=== PATIENT | male | born 1980 | race Caucasian/White ===

== ENCOUNTER 2016-08-02 17:41 | Emergency (ER) | payer OTHER ==
[~2016-08-02 17:41] MED LIST: ALD25 PO; ECO81 PO; LIPI10 PO; TOP50 PO; ZES10 PO
[2016-08-02 20:55] VITALS: BP 123/87
== END 2016-08-02 20:55 | disposition home or self-care (01) ==
LOC: ED 17:41
DX: M54.12 Radiculopathy, cervical region (principal); S09.90XA Unspecified injury of head, initial encounter; R03.0 Elevated blood-pressure reading, without diagnosis of hypertension; W17.89XA Other fall from one level to another, initial encounter; Y93.89 Activity, other specified; Y99.8 Other external cause status; Y92.89 Other specified places as the place of occurrence of the external cause
CPT/HCPCS: J1885

== ENCOUNTER 2016-10-02 16:32 | Emergency (ER) | payer SELFPAY ==
[~2016-10-02] VITALS: Ht 175.3 cm; Wt 91.6 kg
[2016-10-02 17:59] LABS: BASOPHIL % 0.5 % (0-2); PLATELET COUNT 244 x10^3mcL (130-400); RED CELL DISTRIBUTION WIDTH 12.4 % (11.5-14.5)
[2016-10-02 18:08] LABS: CALCIUM 9.1 mg/dL (8.5-10.1); CARBON DIOXIDE 21.4 mmol/L (21-32); CREATININE SERUM 3.3 mg/dL (0.7-1.3); POTASSIUM SERUM 4.9 mmol/L (3.5-5.1)
[2016-10-02 18:13] LABS: ALBUMIN 3.9 g/dL (3.4-5.0); BILIRUBIN TOTAL 0.22 mg/dL (0.20-1.00)
[2016-10-02 19:30] VITALS: BP 152/108
== END 2016-10-02 19:30 | disposition home or self-care (01) ==
LOC: ED 16:32
PROVIDERS: Emergency Medicine
DX: I12.9 Hypertensive chronic kidney disease with stage 1 through stage 4 chronic kidney disease, or unspecified chronic kidney disease (principal); N18.9 Chronic kidney disease, unspecified; I42.9 Cardiomyopathy, unspecified; Z79.1 Long term (current) use of non-steroidal anti-inflammatories (NSAID); Z79.899 Other long term (current) drug therapy; Z88.0 Allergy status to penicillin
CPT/HCPCS: 36415; 83880

== ENCOUNTER 2018-01-17 19:22 | Emergency (ER) | payer MEDICAID ==
[~2018-01-17] VITALS: Ht 175.3 cm; Wt 94.1 kg
[2018-01-17 19:58] VITALS: Ht 175.3 cm; Wt 94.1 kg
[2018-01-17 21:44] LABS: UA SPECIFIC GRAVITY 1.025 (1.005-1.035); microscopic required? YES; urine erythrocyte 2+ (NEGATIVE)
[2018-01-18 00:33] VITALS: BP 142/99
== END 2018-01-18 00:33 | disposition home or self-care (01) ==
LOC: ED 19:22
PROVIDERS: Emergency Medicine
DX: N39.0 Urinary tract infection, site not specified (principal); K40.90 Unilateral inguinal hernia, without obstruction or gangrene, not specified as recurrent; R19.09 Other intra-abdominal and pelvic swelling, mass and lump; I10 Essential (primary) hypertension; Z88.0 Allergy status to penicillin
CPT/HCPCS: Q0092